=== PATIENT | female | born 1990 | race Caucasian/White ===

== ENCOUNTER 2025-02-16 10:24 | Emergency (ER) | payer OTHER, SELFPAY ==
[2025-02-16 10:38] VITALS: BP 142/94; PULSE 85; RESP 18; TEMP 36.9; O2SAT 100
[2025-02-16 10:59] LABS: Hematocrit 41.1 % (37.0-47.0); Hemoglobin 13.2 g/dL (12.0-15.0); Immature Granulocyte Percent A 0.4 % (0-0.5); Lymphocytes Absolute Auto 2.47 K/mm3 (0.9-3.2); Mean Corpuscular HGB Conc 32.1 g/dl (32-36); Mean Corpuscular Hemoglobin 28.4 pg (26-34); Mean Corpuscular Volume 88.6 fl (80-100); Nucleated Red Blood Cells Absolute Auto 0.000 K/mm3 (0.0-0.012); Nucleated Red Blood Cells Perc 0.0 % (0.0-0.2); Platelet Count Result 305 k/mm3 (150-375); Red Blood Count 4.64 M/mm3 (4.2-5.4); White Blood Count 10.2 K/mm3 (4.5-10.0)
--- NOTE | 2025-02-16 11:04 | ED_ITS ---
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 She finished her last menstrual period on December 31. States she has taken a couple tests and they were positive. Her have been trying to yet . States when she woke up this morning she developed a cramping and had some heavy bleeding in a pad-noticed some large clots. States bleeding has slowed down since this morning. Denies any chest pain or shortness of breath. 3 para 2. Related Data Allergies Allergy/AdvReac Type Severity Reaction Status Date / Time No Known Allergies Allergy Verified 02/16/25 13:51 Review of Systems 2 Review of Systems: Pertinent positives per HPI. Patient denies any fever, chills, rash, headache, visual changes, dizziness, cough, runny nose, sore throat, shortness of breath, chest pain, palpitations, nausea, vomiting, diarrhea, constipation, abdominal pain, or any urinary issues. PMFSH Comments At the time of my signature, I reviewed and agree with the nursing past medical, surgical, social, and family history. There is no relevant family history pertinent to the patient complaint. Exam 2 Narrative: General: Well-developed, well nourished, in no apparent distress Head: Normocephalic, atraumatic. Cardio: Regular rate and rhythm, s1 and s2 normal, no murmur appreciated. Resp: Clear to auscultation bilaterally, no rhonchi, rales, wheezing or rubs. Abdomen: Soft, pliable, bowel sounds present in all quadrants, non-tender to palpation, no CVAT tenderness. : Pelvic exam performed with (Oksana GAN) at bedside. Verbal consent obtained from patient. Normal external female genitalia without lesions or masses, Urinary meatus: patent without discharge, Vagina: No lesions, masses, blood in the pelvic vault Cervix: pink without mass, lesions, or tenderness. Bleeding coming from the cervical os Course Course Emergency Course: Portions of this record may have been created with voice recognition software. Vital Signs Vital signs: Vital Signs Temperature 36.9 C 02/16/25 10:38 Pulse Rate 85 02/16/25 10:38 Respiratory Rate 18 02/16/25 10:38 Blood Pressure 142/94 H 02/16/25 10:38 Pulse Oximetry 100 02/16/25 10:38 Oxygen Delivery Room Air 02/16/25 10:38 Temperature 36.5 C 02/16/25 13:54 Pulse Rate 75 02/16/25 13:50 Respiratory Rate 20 02/16/25 13:54 Blood Pressure 132/77 02/16/25 13:54 Pulse Oximetry 99 02/16/25 13:54 Oxygen Delivery Room Air 02/16/25 10:38 Vital signs reviewed MDM - OB/Uterine Contractions MDM Narrative Medical decision making narrative: At the time of visit patient is resting comfortably on the exam table. Patient appears to be nontoxic. C/o vaginal bleeding, abdominal cramping, and some dizziness. She finished her last menstrual period on December 31. States she has taken a couple tests and they were positive. Her have been trying to yet . States when she woke up this morning she developed a cramping and had some heavy bleeding in a pad-noticed some large clots. States bleeding has slowed down since this morning. Denies any chest pain or shortness of breath. 3 para 2. Labs ordered Labs: CBC shows white blood cell count of 10.2, H&H of 13.2 in 41.1 platelet count 305, anti coagulation studies within normal limits, electrolytes within normal limits, once 14, creatinine 0.65, GFR is greater than 60, glucose is 122 beta hCG quant is 3.38. Patient is A positive with a negative antibody screen. Plan: Patient's hCG 3.38 and she has active vaginal bleeding. Contacted patient OBGYN Dr. Aj and he does not recommend ultrasound at this time as the patient is no longer . Patient updated of results and voiced understanding. Lab patient follow-up with OBGYN next week. Supportive measures were discussed with the patient and they voiced understanding discharge instructions and agrees to treatment plan. Return precautions reviewed. Differential Diagnosis Differential diagnosis: Likely other (Threatened miscarriage, abnormal uterine dysfunction, menorrhagia) Lab Data 02/16/25 10:49 02/16/25 10:49 Labs: Lab Results 02/16/25 Range/Units 10:49 WBC 10.2 H (4.5-10.0) K/mm3 RBC 4.64 (4.2-5.4) M/mm3 Hgb 13.2 (12.0-15.0) g/dL Hct 41.1 (37.0-47.0) % MCV 88.6 (80-100) fl MCH 28.4 (26-34) pg MCHC 32.1 (32-36) g/dl RDW 13.0 (11.5-14.5) % Plt Count 305 (150-375) k/mm3 MPV 9.7 (7.4-10.4) fl Immature Gran % (Auto) 0.4 (0-0.5) % Neut % (Auto) 67.2 (45.5-73.1) % Lymph % (Auto) 24.3 (18.3-44.2) % [place] % (Auto) 6.8 (2.6-8.5) % Eos % (Auto) 0.8 (0-4.4) % Baso % (Auto) 0.5 (0.2-1.2) % Lymph # (Auto) 2.47 (0.9-3.2) K/mm3 [place] # (Auto) 0.7 H (0.1-0.6) K/mm3 Eos # (Auto) 0.1 (0-0.3) K/mm3 Baso # (Auto) 0.1 (0.0-0.1) K/mm3 Abs Immat Gran (auto) 0.04 H (0.00-0.031) K/mm3 Absolute Neuts (auto) 6.9 H (1.3-6.7) K/mm3 Absolute Nucleated RBC 0.000 (0.0-0.012) K/mm3 Nucleated RBC % 0.0 (0.0-0.2) % PT 13.3 (11.1-14.7) Seconds INR 1.0 APTT 25.6 (22.3-36.8) Seconds Sodium 139 (137-145) mmol/L Potassium 3.4 (3.4-5.0) mmol/L Chloride 105 (98-107) mmol/L Carbon Dioxide 28 (22-30) mmol/L Anion Gap 6 (4-12) mmol/L BUN 14 (7-17) mg/dL Creatinine 0.65 L (0.7-1.0) mg/dL Estim Creat Clear Calc 91 ml/min Estimated GFR > 60 (59 - ) Glucose 122 H (65-110) mg/dL Calcium 8.9 (8.4-10.2) mg/dL Total Bilirubin 0.3 (0.2-1.3) mg/dL AST 31 (14-36) U/L ALT 20 (6-35) U/L Alkaline Phosphatase 57 (38-126) U/L Total Protein 7.8 (6.3-8.2) g/dL Albumin 4.4 (3.5-5.1) g/dL Beta HCG, Quant 3.38 mIU/ML Blood Type A Positive Antibody Screen Negative Screen Not Reportable Baby's Blood Type Not Reportable Baby's AD Not Reportable Doses of RhIg Required 0 Discharge Plan Discharge Clinical Impression: Vaginal bleeding Patient Disposition: Home Condition: Stable Instructions: Antibiotic Form, Threatened Miscarriage (ED) Additional Instructions: Beta hCG is 3.38 in the ER today-this level is not consistent with Increase fluids and stay well hydrated Blood type is type a with a negative antibody screen-no need for RhoGAM Follow-up with your primary care/bar waiter/waitress in 1 week if symptoms persist Return to the emergency room if you develop fever, worsening of abdominal pain, shortness of breath, chest pain, confusion, weakness, lethargy, or any other concerning symptoms Patient Language: Macedonian Follow-up/Referrals: PHYSICIAN,GRAIN LOADER [Primary Care Provider, Internal Medicine] Time of Disposition: 13:21 Quality NIHSS Nursing Documentation ED NIHSS nursing documentation: reviewed/agree
[2025-02-16 11:12] LABS: INR 1.0; Partial Thromboplastin Time 25.6 Seconds (22.3-36.8); Prothrombin Time 13.3 Seconds (11.1-14.7)
[2025-02-16 11:19] LABS: Alanine Aminotransferase 20 U/L (6-35); Albumin Level 4.4 g/dL (3.5-5.1); Alkaline Phosphatase 57 U/L (38-126); Anion Gap 6 mmol/L (4-12); Aspartate Amino Transferase 31 U/L (14-36); Bilirubin,Total 0.3 mg/dL (0.2-1.3); Blood Urea Nitrogen 14 mg/dL (7-17); Calcium 8.9 mg/dL (8.4-10.2); Carbon Dioxide 28 mmol/L (22-30); Chloride 105 mmol/L (98-107); Estimated CRCL calculation 91 ml/min; Estimated Glomerular Filt Rate > 60; Glucose 122 mg/dL (65-110); Potassium 3.4 mmol/L (3.4-5.0); Sodium 139 mmol/L (137-145); Total Protein 7.8 g/dL (6.3-8.2)
[2025-02-16 11:35] LABS: Beta HCG Quantitative 3.38 mIU/ML
[2025-02-16 13:48] VITALS: BP 132/77; PULSE 70
[2025-02-16 13:49] VITALS: BP 139/79; PULSE 75
[2025-02-16 13:50] VITALS: BP 114/79; PULSE 75
[2025-02-16 13:54] VITALS: BP 132/77; RESP 20; TEMP 36.5; O2SAT 99
== END 2025-02-16 13:55 | disposition home or self-care (01) ==
PROVIDERS: Emergency Medicine; Emergency Provider Nurse Practitioner Family
DX: N93.9 Abnormal uterine and vaginal bleeding, unspecified (principal)
CPT/HCPCS: 36415; 80053; 84702; 85025; 85461; 85610; 85730; 86850; 86900; 86901; 99284